=== PATIENT | male | born 1965 | race Caucasian/White ===

== ENCOUNTER 2021-10-19 08:33 | Day surgery (SDC) | payer BC ==
[~2021-10-19] VITALS: Ht 172.7 cm; Wt 90.7 kg
[~2021-10-19 08:33] MED LIST: BENAZEPRIL5 M1 PO; DOES NOT KNOW MEDS; FENOFIBRATE160 MG PO; HYZAAR1 TA1 PO; LEXAPRO5 MG PO; LOPRESSOR50 MG PO; METOPROL TAR50 MG PO; NORVASC5 M1 PO; PERCOCET 5/325M1 TAB OR; PRILOSEC20 MG/CAP PO
[2021-10-19 12:12] VITALS: BP 138/72
== END 2021-10-19 12:10 | disposition home or self-care (01) | DRG 951 ==
LOC: ORM 08:33
PROVIDERS: ATTEND Surgery
PROC: 0DJD8ZZ Inspection of Lower Intestinal Tract, Via Natural or Artificial Opening Endoscopic (ICD-10-PCS; principal; 2021-10-19)
PROC: 0DJ08ZZ Inspection of Upper Intestinal Tract, Via Natural or Artificial Opening Endoscopic (ICD-10-PCS; 2021-10-19)
DX: Z12.11 Encounter for screening for malignant neoplasm of colon (principal); R13.10 Dysphagia, unspecified; F17.220 Nicotine dependence, chewing tobacco, uncomplicated